=== PATIENT | male | born 1980 | race Caucasian/White ===

== ENCOUNTER 2019-12-07 19:38 | Emergency (ER) | payer OTHER, SELFPAY ==
--- NOTE | ~2019-12-07 | XR_ITS ---
EXAMINATION: XR thoracic spine 2V, XR lumbar spine 2-3V EXAM DATE: 12/07/2019 20:13 (accession [id number]), 12/07/2019 20:12 (accession [id number]) INDICATION: Fall, medial back pain. Pain radiating down arms and legs. TECHNIQUE: Lumber spine frontal, lateral, lateral L5-S1 projections for interpretation. The thoracic spine frontal and lateral projections. There are no prior studies for comparison. FINDINGS: The interpedicular spaces are preserved. There is mild lumbar and lower thoracic disc dise ase. There are no acute fractures identified. The vertebral bodies are aligned in the AP dimension. S acrum, sacroiliac joints, sacral arcuate lines are intact. Multiple small calcified gallstones. IMPRESSION: 1. Mild spondylosis. 2. Cholelithiasis. Reviewed, dictated and finalized at location A. IMPRESSION: 1. Mild spondylosis. 2. Cholelithiasis.
[2019-12-07 19:42] VITALS: BP 190/117; PULSE 95; RESP 22; TEMP 36.6; O2SAT 97
--- NOTE | 2019-12-07 19:56 | ED.GENADULT ---
HPI - General Adult General Chief complaint: Back Pain/Injury Stated complaint: back pain Time Seen by Provider: 12/07/19 19:49 Source: patient Mode of arrival: ambulatory History of Present Illness HPI narrative: Patient is a 39 y/o male complaining left back pain radiating to left leg since yesterday. He describes his pain as tightening and rates it as 8/10. There is no alleviating or exacerbating factor. He states that he took Tylenol which did not help. He denies any difficulty with bowel or bladder function. He denies any leg weakness and he is able to ambulate without difficulty. Review of Systems Constitutional: Constitutional: Denies chills, Denies fever(s), Denies headache(s) and Denies weakness Eyes: Eyes: Denies blurry vision ENT: Denies headache(s) and Denies neck pain Cardiovascular: Cardiovascular: Denies chest pain and Denies dyspnea Respiratory: Respiratory: Denies cough and Denies dyspnea Gastrointestinal: Gastrointestinal: Denies abdominal pain, Denies diarrhea, Denies nausea and Denies vomiting Genitourinary: Genitourinary: Denies hematuria and Denies dysuria Musculoskeletal: Musculoskeletal: Reports back pain and Denies neck pain Neurologic: Denies headache(s) and Denies weakness Exam Const: General: no acute distress and well developed Orientation/consciousness: oriented to person, oriented to place, oriented to time and patient oriented x3 HENMT: Head: normocephalic Ears: external ears normal General nose exam: Normal external nose present Eyes: General: appearance normal, both eyes and all related structures Conjunctivae: conjunctivae normal Neck: Neck: normal visual inspection and full ROM Chest: Chest palpation & inspection: normal inspection of the chest and no tenderness Resp: Effort & Inspection: normal respiratory effort Auscultation: clear to auscultation bilaterally Cardio: Rate: regular rate Rhythm: regular rhythm GI: GI Palp: No abdominal tenderness and Yes Soft to palpation Skin: General skin exam: normal color and turgor normal Lesions: other (mass right temporal area, likely chronic) Neuro: General: oriented to person, oriented to place, oriented to time and patient oriented x3 Cognition (Neuro): normal cognition Gait exam (Neuro): Other gait observations present (able to walk without assistance) Motor exam (neuro): 5/5 motor strength present throughout Extrem: General: normal to inspection, full ROM and no pedal edema Psych: Appearance: grossly normal Mental Status: mental status grossly normal Affect: normal affect Course Vital Signs Vital signs: Vital Signs Temperature 36.6 C 12/07/19 19:42 Pulse Rate 95 12/07/19 19:42 Respiratory Rate 22 H 12/07/19 19:42 Blood Pressure 190/117 H 12/07/19 19:42 Pulse Oximetry 97 12/07/19 19:42 Temperature 36.6 C 12/07/19 22:25 Pulse Rate 88 12/07/19 22:25 Respiratory Rate 18 12/07/19 22:25 Blood Pressure 139/88 12/07/19 22:25 Pulse Oximetry 97 12/07/19 22:25 Medical Decision Making Vital Signs Vital Signs: Vital Signs Temperature 36.6 C 12/07/19 19:42 Pulse Rate 95 12/07/19 19:42 Respiratory Rate 22 H 12/07/19 19:42 Blood Pressure 190/117 H 12/07/19 19:42 Pulse Oximetry 97 12/07/19 19:42 Temperature 36.6 C 12/07/19 22:25 Pulse Rate 88 12/07/19 22:25 Respiratory Rate 18 12/07/19 22:25 Blood Pressure 139/88 12/07/19 22:25 Pulse Oximetry 97 12/07/19 22:25 Discharge Plan Discharge Clinical Impression: Low back pain Qualifiers: Chronicity: unspecified Back pain laterality: left Sciatica presence: with sciatica Sciatica laterality: sciatica of left side Qualified Code(s): M54.42 - Lumbago with sciatica, left side Hypertension Qualifiers: Hypertension type: unspecified Qualified Code(s): I10 - Essential (primary) hypertension Patient Disposition: Home, Self-Care Condition: Stable Instructions: Back Pain (ED) Prescriptions: New
[2019-12-07 22:25] VITALS: BP 139/88; PULSE 88; RESP 18; TEMP 36.6; O2SAT 97
== END 2019-12-07 22:26 | disposition home or self-care (01) ==
PROVIDERS: Emergency Provider Emergency Medicine
DX: M54.42 Lumbago with sciatica, left side (principal); I10 Essential (primary) hypertension
CPT/HCPCS: 72070; 72100; 99283

== ENCOUNTER 2022-01-14 22:51 | Inpatient (IN) | payer OTHER, SELFPAY ==
[2022-01-14] VITALS (7 sets, daily range): BP systolic 175–200; BP diastolic 76–101; PULSE 66–73; RESP 18–20; TEMP 36.3; O2SAT 96–100
--- NOTE | ~2022-01-14 | XR_ITS ---
EXAMINATION: XR chest 2V DATE: 01/14/2022 23:42 INDICATION: Chest pain. TECHNIQUE: Frontal and lateral views of the chest were obtained. COMPARISON: None. FINDINGS: There is mild atelectasis in right lower lung zone. There is mild elevation of right hemidi aphragm. No pleural effusion or pneumothorax. The heart size is normal. There is mild chronic anterio r wedging of a midthoracic vertebral body. IMPRESSION: 1. Mild atelectasis in right lower lung zone with mild elevation of right hemidiaphragm. Reviewed, dictated and finalized at location A. IMPRESSION: 1. Mild atelectasis in right lower lung zone with mild elevation of right hemid iaphragm.
--- NOTE | ~2022-01-14 | NM_ITS ---
EXAMINATION: NM hal stress w perfusion DATE: 01/15/2022 13:46 INDICATION: Chest pain. TECHNIQUE: Rest images were obtained following intravenous administration of 14.8 mCi Tc99m tetrofosm in (Myoview). The patient was infused intravenously with Lexiscan (regadenoson). Then, 42.6 mCi Tc99m tetrofosmin (Myoview) was administered intravenously, and supine and prone stress images were obtain ed. Data was reconstructed into short axis and horizontal and vertical long axis SPECT images. Gated SPECT images were also obtained. COMPARISON: None. FINDINGS: There is no definite reversible or fixed perfusion abnormality to suggest ischemia or infar ction. There is no segmental wall motion abnormality. Left ventricular ejection fraction measures 5 7%. IMPRESSION: 1. No definite ischemia or infarct. 2. Normal left ventricular ejection fraction measuring 57%. Reviewed, dictated and finalized at location A.
--- NOTE | 2022-01-14 22:56 | ECG_ITS ---
Measurements Intervals [place] Rate: 69 P: 50 WA: 198 QRS: -28 QRSD: 100 T: 17 QT: 382 QTc: 410 Interpretive Statements SINUS RHYTHM BORDERLINE AV CONDUCTION DELAY POOR R WAVE PROGRESSION, CONSIDER ANTERIOR INFARCT BASELINE ARTIFACT- I, II, III, AVF ABNORMAL ECG NO PREVIOUS ECG AVAILABLE FOR COMPARISON Electronically Signed On 01-15-2022 6:52:19 CDT by Tho Kuo D.O.
[2022-01-14 23:20] LABS: Basophils Percent Auto 0.5 % (0.2-1.2); Eosinophils Absolute Auto 0.1 K/mm3 (0-0.3); Eosinophils Percent Auto 1.8 % (0-4.4); Hematocrit 42.5 % (42.0-52.0); Hemoglobin 14.9 g/dL (14.0-18.0); Immature Granulocyte Absolute 0.01 K/mm3 (0.00-0.031); Immature Granulocyte Percent A 0.2 % (0-0.5); Lymphocytes Absolute Auto 2.21 K/mm3 (0.9-3.2); Lymphocytes Percent Auto 39.9 % (18.3-44.2); Mean Corpuscular HGB Conc 35.1 g/dl (32-36); Mean Corpuscular Hemoglobin 30.8 pg (26-34); Mean Platelet Volume 9.5 fl (7.4-10.4); Monocytes Absolute Auto 0.6 K/mm3 (0.1-0.6); Monocytes Percent Auto 10.3 % (2.6-8.5); Neutrophils Absolute Auto 2.6 K/mm3 (1.3-6.7); Neutrophils Percent Auto 47.3 % (45.5-73.1); Platelet Count Result 175 k/mm3 (150-375); Red Blood Count 4.83 M/mm3 (4.6-6.20); Red Cell Distribution Width 12.7 % (11.5-14.5); White Blood Count 5.5 K/mm3 (4.5-10.0)
[2022-01-14 23:31] LABS: Alanine Aminotransferase 41 U/L (6-50); Alkaline Phosphatase 49 U/L (38-126); Anion Gap 12 mmol/L (8-16); Aspartate Amino Transferase 33 U/L (17-59); Bilirubin,Total 0.6 mg/dL (0.2-1.3); Blood Urea Nitrogen 14 mg/dL (9-20); Calcium 8.7 mg/dL (8.4-10.2); Carbon Dioxide 27 mmol/L (22-30); Chloride 100 mmol/L (98-107); Estimated CRCL calculation 199 ml/min; Estimated Glomerular Filt Rate > 60; Glucose 213 mg/dL (65-110); Lipase 48 U/L (23-300); Potassium 3.4 mmol/L (3.4-5.0); Prothrombin Time 12.3 Seconds (11.1-14.7); Sodium 139 mmol/L (137-145)
[2022-01-14 23:32] LABS: Partial Thromboplastin Time 24.6 SECONDS (22.3-36.8)
[2022-01-14] MEDS: ASPIRIN 81 MG CHEWABLE TABLET 324 MG PO (23:55)
[2022-01-14] MEDS: IBUPROFEN 400 MG TABLET 800 MG PO (23:55)
[2022-01-14] MEDS: ACETAMINOPHEN 500 MG TABLET 1000 MG PO (23:56)
[2022-01-15] VITALS (45 sets, daily range): BP systolic 134–186; BP diastolic 68–116; PULSE 58–90; RESP 14–23; TEMP 36.1–36.3; O2SAT 93–100; BMI 54.9
--- NOTE | 2022-01-15 | ECHO_ITS ---
Patient Info Name: Hamlet Owens Age: 41 years : 1980 Gender: Male Ht: 75 in Wt: 439 lbs BSA: 3.35 m2 HR: 80 bpm BP: 186 / 116 mmHg Heart Rhythm: Sinus Rhythm Technical Quality: Fair Exam Date: 01/15/2022 10:34 AM Exam Location: [facility] Patient Status: Inpatient Admit Date: 01/15/2022 Staff Ordering Physician: Shane Molina Home Stager: Deya Camacho RDCS Attending Provider: Hilario Garcia MD Referring Physician: Jesse MEJIA; Exam Type: CA echo dop color flow w con Study Info Indications R07.9 - Chest pain, unspecified Complete two-dimensional, color flow and Doppler transthoracic echocardiogram is performed with contrast to opacify the left ventricle and to improve the deliniation of the left ventricle endocardial borders. Contrast/Agitated Saline Contrast/Ag. Saline: Definity Amount: 3.00 ml Administered By: Deya Camacho RDCS Existing IV Access: Yes IV Access Condition: patent with no signs of infiltration Summary 1. Definity contrast injected to enhance visualization. 2. Left ventricular systolic function is normal, estimated at 55-60%. 3. Left ventricular chamber dimension is normal. 4. Reduced image quality because of obesity. 5. No significant valvular dysfunction. 6. No apparent regional wall motion abnormalities. Left Ventricle Left ventricular chamber dimension is normal. Left ventricular systolic function is normal, estimated at 55-60%. The left ventricular diastolic function is normal. Definity contrast injected to enhance visualization. Right Ventricle Right ventricular chamber dimension is normal. Left Atria Left atrial chamber dimension is mildly enlarged. Right Atria Right atrial chamber dimension is normal. Aortic Valve The aortic valve is normal. Pulmonic Valve The pulmonic valve is not well visualized. Mitral Valve The mitral valve has normal leaflets. Tricuspid Valve The tricuspid valve leaflets are not well visualized. Pericardium/Pleural The pericardium appears normal. Aorta The aortic root size at the sinus of Valsalva is normal. Left Ventricular Outflow Tract Name Value Normal LVOT 2D LVOT Diameter 2.19 cm LVOT Doppler LVOT Peak Gradient 3 mmHg LVOT Mean Gradient 2 mmHg LVOT VTI 17.54 cm LVOT VTI/AV VTI Ratio 0.68 LVOT Stroke Volume 65.95 ml LVOT CO 4.67 l/min LVOT CI 1.39 L/min/m2 Pulmonic Valve Name Value Normal RVOT Doppler RVOT Peak Gradient 3 mmHg PV Doppler PV Peak Gradient
--- NOTE | 2022-01-15 | EST_ITS ---
Patient Info Name: Hamlet Owens Age: 41 years : 1980 Gender: Male Ht: 75 in Wt: 439 lbs BSA: 3.35 m2 Exam Date: 01/15/2022 12:21 PM Exam Location: [facility] Stress Patient Status: Inpatient Admit Date: 01/15/2022 Staff Ordering Physician: Janeth Haro MD Attending Provider: Hilario Garcia MD Exercise Technologist: Karly Wright RDCS Nurse: AISHA NGUYEN NP Exam Type: CA stress hal w NM Study Info Indications R07.9 - Chest pain, unspecified A regadenoson stress test was performed. Summary 1. Normal sinus rhythm. 2. Poor R-wave progression, left anterior superior hemiblock. 3. Clinically and electrocardiographically unremarkable Lexiscan stress test. 4. Myocardial perfusion imaging study to be reported by Radiology. Protocol: Lexiscan Stress ECG Details Stage: REST Duration (min): 0 min : 46 sec HR (bpm): 80 SBP (mmHg): 143 DBP (mmHg): 71 Stage: REST Duration (min): 11 min : 51 sec HR (bpm): 85 SBP (mmHg): 143 DBP (mmHg): 71 Stage: STAGE 1 Duration (min): 1 min : 0 sec HR (bpm): 90 SBP (mmHg): 148 DBP (mmHg): 49 Stage: RECOVERY Duration (min): 1 min : 0 sec HR (bpm): 85 SBP (mmHg): 166 DBP (mmHg): 40 Stage: RECOVERY Duration (min): 2 min : 0 sec HR (bpm): 81 SBP (mmHg): 166 DBP (mmHg): 40 Stage: RECOVERY Duration (min): 3 min : 0 sec HR (bpm): 77 SBP (mmHg): 166 DBP (mmHg): 40 Stage: RECOVERY Duration (min): 3 min : 29 sec HR (bpm): 78 SBP (mmHg): 125 DBP (mmHg): 75 Rest HR: 85 bpm Peak HR: 90 bpm Rest Sys BP: 143 mmHg Peak Sys BP: 166 mmHg Max Pred HR: 181 bpm % Max Pred HR: 50 % Target HR: 154 bpm Max RPP: 14,940 bpm*mmHg Termination Reason: Completed protocol Cardiac Symptoms: None Total Time: 1 min : 0 sec Rest Cheung BP: 71 mmHg Peak Cheung BP: 40 mmHg Total Dose: 0.4 mg Resting ECG Normal sinus rhythm. Poor R-wave progression, left anterior superior hemiblock. Stress ECG No ST or T-wave abnormalities following Lexiscan injection. Arrhythmias None. Report Signatures
--- NOTE | 2022-01-15 00:35 | ED.GENADULT ---
HPI - General Adult General Chief complaint: Chest Pain Stated complaint: HTN, chest pressure Time Seen by Provider: 01/14/22 23:05 History of Present Illness HPI narrative: This is a 41-year-old morbidly obese Male presenting to ED with right arm discomfort. Patient says that he was laying in bed watching TV when he started to experience pain in his right arm below the shoulder. It is now radiating down his arm and across his chest. This started at approximately 9:30 p.m. last night. It is it is 8/10 in intensity. He says is currently intermittent. He has never experienced pain like this before. There were no exacerbating or alleviating factors. It is not associated with vomiting diaphoresis or exertion. The patient notes that he has significant anxiety associated w/ his arm discomfort. Related Data Allergies Allergy/AdvReac Type Severity Reaction Status Date / Time morphine AdvReac Nausea and Verified 01/14/22 22:55 Vomiting Review of Systems Review of Systems: CONSTITUTIONAL: Denies night sweats. EYES: No eye pain ENT: Denies rhinorrhea CARDIOVASCULAR: Denies palpitations RESPIRATORY: Denies hemoptysis GASTROINTESTINAL: Denies hematemesis GENITOURINARY: Denies hematuria. SKIN: Denies rash MUSCULOSKELETAL: Denies myalgia. NEUROLOGIC: Denies weakness. PSYCHIATRIC: Denies delusions PMF Past Medical History Medical History (Updated 01/15/22 @ 02:59 by Manjeet Galarza MD) Diabetes Hypertension Social History Social History (Updated 01/15/22 @ 00:42 by Manjeet Galarza MD) Social History: patient drinks alcohol occasionally, smoked quit smoking 10 years ago, denies illicit dr Exam Narrative: APPEARANCE: Patient appears anxious, obese Head atraumatic. EYES: PERRLA/EOMI, NOSE: Normal no drainage NECK: Supple, Trachea midline RESPIRATORY: CTAB, No increased work of breathing. CARDIOVASCULAR: S1S2 appreciated, ABDOMINAL: soft nontender obese MUSCULOSKELETAl: No obvious deformities. focal exam of the right upper extremity revealed tenderness to palpation over the lateral humerus. There are no overlying skin changes. The compartments are soft. There is no evidence of erythema fluctuance or infection. Pulses are +2 in the radial ulnar distribution. Tank Operator strength is intact and motor function of the radial ulnar and median nerves intact. NEURO: Alert. Moving 4/4 extremities SKIN:: Warm, dry. Normal color PSYCHIATRIC: Normal affect Course Vital Signs Vital signs: Vital Signs Temperature 97.4 F L 01/14/22 22:57 Pulse Rate 73 01/14/22 22:57 Respiratory Rate 20 01/14/22 22:57 Blood Pressure 200/101 H 01/14/22 22:57 Pulse Oximetry 99 01/14/22 22:57 Oxygen Delivery Room Air 01/14/22 22:57 Temperature 97.4 F L 01/14/22 22:57 Pulse Rate 58 L 01/15/22 02:31 Respiratory Rate 15 01/15/22 02:31 Blood Pressure 140/74 01/15/22 02:31 Pulse Oximetry 95 01/15/22 02:31 Oxygen Delivery Room Air 01/14/22 22:57 Medical Decision Making MDM Narrative Medical decision making narrative: This is a 41-year-old male presenting to ED with what initially started out as right arm discomfort is now spread to his hand into his chest. Patient is concerned that he is having a heart attack. Basic lab work including 2 troponins, EKG and chest x-ray have been ordered. Patient has tenderness to palpation of his right bicep/tricep. He will be given Motrin and Tylenol. Chest x-rays interpreted by myself reveal an elevated right hemidiaphragm but no other acute findings. EKG interpretation: Rhythm [sinus], Rate 69, [place] - leftward, RI -[normal], QRS [narrow], QTC [normal], T waves -[negative for concerning inversions], ST Segments - [Negative for concerning elevations] Final interpretations: [Normal Sinus Rhythm Without STEMI] Patient's initial troponin was negative. His repeat troponin was 0.048. The patient has been sleeping throughout his entire stay in the
[2022-01-15 02:44] LABS: Troponin I 0.048 ng/mL (0.000-0.034)
--- NOTE | 2022-01-15 02:44 | ECG_ITS ---
Measurements Intervals [place] Rate: 62 P: 39 SD: 222 QRS: -20 QRSD: 88 T: 7 QT: 412 QTc: 421 Interpretive Statements SINUS RHYTHM WITH FIRST DEGREE AV BLOCK LOW QRS VOLTAGE IN PRECORDIAL LEADS ANTEROSEPTAL INFARCT, AGE INDETERMINATE CONSIDER INFERIOR INFARCT, AGE INDETERMINATE BASELINE ARTIFACT- V3 COMPARED TO ECG 01/14/2022 23:08:10 FIRST DEGREE AV BLOCK NOW PRESENT Electronically Signed On 01-15-2022 6:56:50 CDT by Tho Kuo D.O.
--- NOTE | 2022-01-15 04:00 | PM.IMHP ---
H&P: HPI History of Present Illness Date/Time: 01/15/22 0400 Chief Complaint: Right arm pain Narrative: Patient is a 41-year-old male with past medical history of diabetes, hypertension, hyperlipidemia who presented to the ED with complaints of right arm pain. Patient stated he was lying in bed and his right arm started to hurt and thought he was laying on it wrong. However when he moved it just got worse. Shortly thereafter went to his chest and stopped at the right sternal border. He stated he was little short of breath with chest pain however that resolved quickly. He stated that the chest pain is more like a pressure which she stated was a 10/10 pain. He also stated that he currently has no pain however he does still have the pressure in his right arm. He denied any nausea, vomiting, diarrhea, constipation, sweats, fevers, chills, lightheadedness, dizziness, weakness or fatigue. He did state that at 1 time he was without a job and was unable to get his medications. He stated that his blood pressure without the medications were 150-160/90-95 however when he took his medications were 130-140/80-90. He denies any palpitations. He did state that he does have some chronic swelling that normally stops in the calf area. He also stated that he does urinate a lot, however, he is on furosemide. Troponin are notably going up 0.048/0.092. Blood pressure is also noted to be a little elevated. Cardiology has been consulted. Patient is being admitted to the hospitalist as inpatient Review of Systems Review of Systems: All systems reviewed & are unremarkable except as noted in HPI and below [facility] Past Medical History Medical History (Updated 01/15/22 @ 06:33 by SYL Wilde) Diabetes Hypertension Social History Social History (Updated 01/15/22 @ 00:42 by Manjeet Galarza MD) Social History: patient drinks alcohol occasionally, smoked quit smoking 10 years ago, denies illicit dr Meds Home Medications and Allergies Home Medications Medication Instructions Recorded Confirmed Type atorvastatin 20 mg tablet 20 mg PO HS 01/15/22 01/15/22 History furosemide 40 mg tablet 40 mg PO DAILY PRN Edema 01/15/22 01/15/22 History losartan 100 mg tablet 100 mg PO DAILY 01/15/22 01/15/22 History metformin 1,000 mg tablet 1,000 mg PO BIDWM 01/15/22 01/15/22 History Allergies Allergy/AdvReac Type Severity Reaction Status Date / Time morphine AdvReac Nausea and Verified 01/14/22 22:55 Vomiting antipersperent deodorant AdvReac Blister Uncoded 01/15/22 05:59 Vital Signs Vital Signs - 24 hr 01/14/22 22:57 01/14/22 23:07 01/14/22 23:08 Temperature 97.4 F L Pulse Rate 73 69 69 Respiratory Rate 20 20 18 Blood Pressure 200/101 H 175/76 H Pulse Oximetry 99 98 97 Oxygen Delivery Room Air 01/14/22 23:15 01/14/22 23:30 01/14/22 23:31 Temperature Pulse Rate 67 67 71 Respiratory Rate 20 19 20 Blood Pressure 184/91 H Pulse Oximetry 99 100 100 Oxygen Delivery 01/14/22 23:45 01/15/22 00:00 01/15/22 00:01 Temperature Pulse Rate 66 67 65 Respiratory Rate 19 20 22 H Blood Pressure 160/82 H Pulse Oximetry 96 96 96 Oxygen Delivery 01/15/22 00:15 01/15/22 00:30 01/15/22 00:31 Temperature Pulse Rate 63 61 62 Respiratory Rate 19 18 18 Blood Pressure 147/75 H Pulse Oximetry 95 94 94 Oxygen Delivery 01/15/22 00:45 01/15/22 01:00 01/15/22 01:01 Temperature Pulse Rate 67 65 64 Respiratory Rate 18 18 17 Blood Pressure 145/68 H Pulse Oximetry 93 95 94 Oxygen Delivery 01/15/22 01:15 01/15/22 01:30 01/15/22 01:31 Temperature Pulse Rate 59 L 61 62 Respiratory Rate 16 19 17 Blood Pressure 138/84 Pulse Oximetry 95 97 97 Oxygen Delivery 01/15/22 01:32 01/15/22 01:45 01/15/22 02:00 Temperature Pulse Rate 64 63 71 Respiratory Rate 17 15 15 Blood Pressure Pulse Oximetry 95 97 96 Oxygen Delivery 01/15/22 02:01 01/15/22 02:15 12/28
[2022-01-15 04:22] LABS: SARS-CoV-2 RNA PCR Negative
[2022-01-15 05:27] LABS: Troponin I 0.092 ng/mL (0.000-0.034)
--- NOTE | 2022-01-15 05:48 | ADMGEN ---
This patient, Hamlet Owens, was admitted to IMU Room 205-01. Patient/family oriented to hospital policies and general routines including ID bracelet, bed and alarms, visiting hours, pain management, procedures, bathroom and other care routines, personal items, smoking policy, room service/diet, and visiting hours. Information on how to activate the Rapid Response Team has been discussed. Patient/Family are encouraged to report perceived risks to care and to ask questions if they do not understand what they are told or what they should do.
[2022-01-15] MEDS: hydrALAZINE HCL 20 MG/ML VIAL 10 MG IV PUSH (06:30)
[2022-01-15 07:47] LABS: Basophils Percent Auto 0.4 % (0.2-1.2); Eosinophils Absolute Auto 0.1 K/mm3 (0-0.3); Eosinophils Percent Auto 2.2 % (0-4.4); Hematocrit 44.5 % (42.0-52.0); Hemoglobin 15.5 g/dL (14.0-18.0); Immature Granulocyte Absolute 0.03 K/mm3 (0.00-0.031); Immature Granulocyte Percent A 0.7 % (0-0.5); Lymphocytes Absolute Auto 1.74 K/mm3 (0.9-3.2); Lymphocytes Percent Auto 38.2 % (18.3-44.2); Mean Corpuscular HGB Conc 34.8 g/dl (32-36); Mean Corpuscular Hemoglobin 30.8 pg (26-34); Mean Corpuscular Volume 88.5 fl (80-100); Mean Platelet Volume 9.3 fl (7.4-10.4); Monocytes Absolute Auto 0.4 K/mm3 (0.1-0.6); Monocytes Percent Auto 8.1 % (2.6-8.5); Neutrophils Absolute Auto 2.3 K/mm3 (1.3-6.7); Neutrophils Percent Auto 50.4 % (45.5-73.1); Platelet Count Result 171 k/mm3 (150-375); Red Blood Count 5.03 M/mm3 (4.6-6.20); Red Cell Distribution Width 12.7 % (11.5-14.5); White Blood Count 4.6 K/mm3 (4.5-10.0)
[2022-01-15 07:56] LABS: Magnesium 1.6 mg/dL (1.6-2.3)
[2022-01-15 08:16] LABS: Partial Thromboplastin Time 25.2 SECONDS (22.3-36.8); Prothrombin Time 12.7 Seconds (11.1-14.7)
[2022-01-15 08:17] LABS: Troponin I 0.152 ng/mL (0.000-0.034)
[2022-01-15 08:21] LABS: Hemoglobin A1C 9.6 % (<5.7)
[2022-01-15] MEDS: HEPARIN SOD/D5W 100 UNITS/ML 25,000 UNITS/250 ML BAG 10 UNITS IV CONT (08:26)
[2022-01-15 08:30] LABS: Glucose Point of Care 242 mg/dl (65-105)
[2022-01-15] MEDS: FUROSEMIDE 40 MG TABLET PO (08:30)
[2022-01-15] MEDS: HEPARIN SODIUM 5,000 UNITS/ML VIAL 4000 UNITS IV PUSH (08:30)
[2022-01-15] MEDS: LOSARTAN POTASSIUM 100 MG TABLET PO (08:31)
[2022-01-15] MEDS: PERFLUTREN LIPID MICROSPHERES 1.5 ML VIAL DILUTED TO 10 ML TOTAL VOLUME IV PUSH (10:04)
--- NOTE | 2022-01-15 10:04 | IVDEFINITY ---
Prior to administration of IV Definity the patient was educated on the risks and benefits of the imaging enhancing agent including potential adverse side effects. The patient verbalized understanding. Allergies were verified. No exclusion criteria were identified and at least one of the following inclusion criteria were met: 1) physician request, 2) patient technically difficult to image (per the [place] [employer] guidelines of two or more segments not discernable within the apical view), or 3) questionable left ventricular function. ?
--- NOTE | 2022-01-15 11:36 | PM.CNCAR ---
Assessment and Plan Assessment and plan (1) Chest pain: Code(s): R07.9 - Chest pain, unspecified Status: Acute (2) Elevated troponin: Code(s): R77.8 - Other specified abnormalities of plasma proteins Status: Acute (3) Hypertension: Code(s): I10 - Essential (primary) hypertension Status: Acute (4) Diabetes: Code(s): E11.9 - Type 2 diabetes mellitus without complications Status: Acute (5) Obesity: Code(s): E66.9 - Obesity, unspecified Status: Acute Plan Echocardiogram ordered and pending, will follow-up on results Start aspirin 81 mg once daily, continue statin. Continue with blood pressure control. Obtain pharmacologic MPI. History of Present Illness History of Present Illness Consult date/time: 01/15/22 11:36 Requesting physician: Shane Molina APN-C Consult reason: chest pain Reason For Visit: chest pain Narrative: Patient is a 41-year-old male with a history of morbid obesity, hypertension, hyperlipidemia, diabetes presents for evaluation of chest pain. Patient reports yesterday evening he developed right arm pressure that radiated to his chest. Symptoms lasted until 3:00 a.m.. Patient reports that his pain was off and on until then. Patient states that he has had right arm pain in the past that felt more like cramping, and yesterday's episode felt different. Patient is currently chest pain free. No prior cardiac history. Family history is negative for premature heart disease. Patient is a former smoker, quit in 2010. Patient has a history of high blood pressure, and reports he takes his medications 4-5 times a week. On arrival here blood pressure noted to be as high as 200 systolic, and patient found with mildly elevated troponins. ECG without ischemic changes. Review of Systems Review of Systems: All systems reviewed & are unremarkable except as noted in HPI and below [facility] Past Medical History Medical History Diabetes Hypertension Social History Social History Social History: patient drinks alcohol occasionally, smoked quit smoking 10 years ago, denies illicit dr Smoking packs per day: 2 Smoking cigarettes per day: 40.0 Years smoked: 10 Smoking pack-years: 20.00 Smoking status: Former smoker Tobacco type: cigarettes Alcohol intake: current Substance use: never Spiritual care concerns: No Meds Home Medications and Allergies Home Medications Medication Instructions Recorded Confirmed Type atorvastatin 20 mg tablet 20 mg PO HS 01/15/22 01/15/22 History furosemide 40 mg tablet 40 mg PO DAILY PRN Edema 01/15/22 01/15/22 History losartan 100 mg tablet 100 mg PO DAILY 01/15/22 01/15/22 History metformin 1,000 mg tablet 1,000 mg PO BIDWM 01/15/22 01/15/22 History Allergies Allergy/AdvReac Type Severity Reaction Status Date / Time morphine AdvReac Nausea and Verified 01/14/22 22:55 Vomiting antipersperent deodorant AdvReac Blister Uncoded 01/15/22 05:59 Vital Signs Vital Signs - 24 hr 01/14/22 22:57 01/14/22 23:07 01/14/22 23:08 Temperature 36.3 C L Pulse Rate 73 69 69 Respiratory Rate 20 20 18 Blood Pressure 200/101 H 175/76 H Pulse Oximetry 99 98 97 Oxygen Delivery Room Air 01/14/22 23:15 01/14/22 23:30 01/14/22 23:31 Temperature Pulse Rate 67 67 71 Respiratory Rate 20 19 20 Blood Pressure 184/91 H Pulse Oximetry 99 100 100 Oxygen Delivery 01/14/22 23:45 01/15/22 00:00 01/15/22 00:01 Temperature Pulse Rate 66 67 65 Respiratory Rate 19 20 22 H Blood Pressure 160/82 H Pulse Oximetry 96 96 96 Oxygen Delivery 01/15/22 00:15 01/15/22 00:30 01/15/22 00:31 Temperature Pulse Rate 63 61 62 Respiratory Rate 19 18 18 Blood Pressure 147/75 H Pulse Oximetry 95 94 94 Oxygen Delivery 01/15/22 00:45 01/15/22 01:00 01/15/22 01:01 [facility]
[2022-01-15 14:49] LABS: Partial Thromboplastin Time 25.1 SECONDS (22.3-36.8)
[2022-01-15] MEDS: ACETAMINOPHEN 325 MG TABLET 650 MG PO (16:24)
--- NOTE | 2022-01-15 16:24 | P.DS_ITS ---
DS: Admitting Diagnosis Discharge Date January 15, 2022 Admitting Diagnosis Arm and chest pain DS: Discharge Diagnosis Discharge Diagnosis (1) Chest pain: Code(s): R07.9 - Chest pain, unspecified Status: Acute Assessment and Plan: * EKG does not indicate any ST changes * Trops 0.048-0.092 * Aspirin * Cardiology consult * Echo ordered * Consider heparin (2) Elevated troponin: Code(s): R77.8 - Other specified abnormalities of plasma proteins Status: Acute Assessment and Plan: * Trops 0.048/0.092 * Continue to trend * Seems to be acs * No ekg changes * Chest xray pending read * Cardiology consult (3) CHF (congestive heart failure): Code(s): I50.9 - Heart failure, unspecified Status: Acute Assessment and Plan: * It seems there is a component of heart failure, more than likily a diastolic heart failure probably chronic * Echo is ordered * 3+ pitting edema to the bilateral lower extremities * Take furosemide PRN * Start furosemide 40mg PO daily for now * Aj hose ordered * daily weights (4) Diabetes: Code(s): E11.9 - Type 2 diabetes mellitus without complications Status: Acute Assessment and Plan: * Glucose is 213 * A1c ordered * Hold metformin for now * Trend glucose * Accu cheks * adjust therapy as indicated (5) Obesity: Code(s): E66.9 - Obesity, unspecified Status: Acute Assessment and Plan: * Lifestyle changes * [employer] Salesperson consult (6) Hypertension: Code(s): I10 - Essential (primary) hypertension Status: Acute Assessment and Plan: * BP is elevated at 186/116 * Continue home losartan * Trend BP * Adjust therapy as indicated DS: Summary Hospital Course Hospital Course: 41-year-old male with past medical history of diabetes, hypertension, hyperlipidemia who presented to the ED with complaints of right arm pain.? Patient stated he was lying in bed and his right arm started to hurt and thought he was laying on it wrong.? However when he moved it just got worse.? Shortly thereafter went to his chest and stopped at the right sternal border.? He stated he was little short of breath with chest pain however that resolved quickly.? He stated that the chest pain is more like a pressure which she stated was a 10/10 pain.? He also stated that he currently has no pain however he does still have the pressure in his right arm.? He denied any nausea, vomiting, diarrhea, constipation, sweats, fevers, chills, lightheadedness, dizziness, weakness or fatigue.? He did state that at 1 time he was without a job and was unable to get his medications.? He stated that his blood pressure without the medications were 150-160/90-95 however when he took his medications were 130-140/80-90.? He denies any palpitations.? He did state that he does have some chronic swelling that normally stops in the calf area.? He also stated that he does urinate a lot, however, he is on furosemide.? Troponin are notably going up 0.048/0.092.? Blood pressure is also noted to be a little elevated.? Cardiology has been consulted. Stress test and echo were ordered and within normal limits, patient was discharged in good condition with close outpatient follow-up on aspirin and statin. Time Spent with Patient Time attestation: Total time spent providing and/or coordinating discharge services: Exam
--- NOTE | 2022-01-15 16:24 | PM.DS ---
DS: Admitting Diagnosis Discharge Date January 15, 2022 Admitting Diagnosis Arm and chest pain DS: Discharge Diagnosis Discharge Diagnosis (1) Chest pain: Code(s): R07.9 - Chest pain, unspecified Status: Acute Assessment and Plan: EKG does not indicate any ST changes Trops 0.048-0.092 Aspirin Cardiology consult Echo ordered Consider heparin (2) Elevated troponin: Code(s): R77.8 - Other specified abnormalities of plasma proteins Status: Acute Assessment and Plan: Trops 0.048/0.092 Continue to trend Seems to be acs No ekg changes Chest xray pending read Cardiology consult (3) CHF (congestive heart failure): Code(s): I50.9 - Heart failure, unspecified Status: Acute Assessment and Plan: It seems there is a component of heart failure, more than likily a diastolic heart failure probably chronic Echo is ordered 3+ pitting edema to the bilateral lower extremities Take furosemide PRN Start furosemide 40mg PO daily for now Aj mckeon ordered daily weights (4) Diabetes: Code(s): E11.9 - Type 2 diabetes mellitus without complications Status: Acute Assessment and Plan: Glucose is 213 A1c ordered Hold metformin for now Trend glucose Accu cheks adjust therapy as indicated (5) Obesity: Code(s): E66.9 - Obesity, unspecified Status: Acute Assessment and Plan: Lifestyle changes Medical Charge Entry Specialist consult (6) Hypertension: Code(s): I10 - Essential (primary) hypertension Status: Acute Assessment and Plan: BP is elevated at 186/116 Continue home losartan Trend BP Adjust therapy as indicated DS: Summary Hospital Course Hospital Course: 41-year-old male with past medical history of diabetes, hypertension, hyperlipidemia who presented to the ED with complaints of right arm pain.? Patient stated he was lying in bed and his right arm started to hurt and thought he was laying on it wrong.? However when he moved it just got worse.? Shortly thereafter went to his chest and stopped at the right sternal border.? He stated he was little short of breath with chest pain however that resolved quickly.? He stated that the chest pain is more like a pressure which she stated was a 10/10 pain.? He also stated that he currently has no pain however he does still have the pressure in his right arm.? He denied any nausea, vomiting, diarrhea, constipation, sweats, fevers, chills, lightheadedness, dizziness, weakness or fatigue.? He did state that at 1 time he was without a job and was unable to get his medications.? He stated that his blood pressure without the medications were 150-160/90-95 however when he took his medications were 130-140/80-90.? He denies any palpitations.? He did state that he does have some chronic swelling that normally stops in the calf area.? He also stated that he does urinate a lot, however, he is on furosemide.? Troponin are notably going up 0.048/0.092.? Blood pressure is also noted to be a little elevated.? Cardiology has been consulted. Stress test and echo were ordered and within normal limits, patient was discharged in good condition with close outpatient follow-up on aspirin and statin. Time Spent with Patient Time attestation: Total time spent providing and/or coordinating discharge services: Exam Narrative: General: No acute distress, alert and oriented per baseline HEENT: Atraumatic, normocephalic, mucous membranes moist CV: Regular rate and rhythm, S1, S2 Lungs: Clear to auscultation bilaterally, no rales or crackles noted, no wheezes, good air entry Abdomen: Soft, nontender, nondistended Extremities: Normal to inspection Skin: No rashes noted, no lesions or wounds seen Psych: Euthymic, normal affect DS: Data Data Completed and Pending Labs on day of discharge: Labs from last 24 hours 01/15/22
[2022-01-15 16:47] LABS: Glucose Point of Care 201 mg/dl (65-105)
== END 2022-01-15 16:47 | disposition home or self-care (01) | DRG 313 ==
LOC: ANHED 01-15 02:59 → ANHIMU 01-15 06:19
PROVIDERS: Nurse Practitioner; Admitting Provider Internal Medicine; Emergency Provider Emergency Medicine; PCP Nurse Practitioner Family; Visit Provider Student in an Organized Health Care Education/Training Program
DX: R07.9 Chest pain, unspecified (principal); Z68.43 Body mass index [BMI] 50.0-59.9, adult; I50.32 Chronic diastolic (congestive) heart failure; I11.0 Hypertensive heart disease with heart failure; E66.01 Morbid (severe) obesity due to excess calories; R77.8 Other specified abnormalities of plasma proteins; M79.601 Pain in right arm; E11.9 Type 2 diabetes mellitus without complications; E78.5 Hyperlipidemia, unspecified; Z20.822 Contact with and (suspected) exposure to COVID-19; Z79.84 Long term (current) use of oral hypoglycemic drugs; Z79.899 Other long term (current) drug therapy; Z87.891 Personal history of nicotine dependence
CPT/HCPCS: 36415; 71046; 78452; 80053; 82948; 83036; 83690; 83735; 84484; 85025; 85610; 85730; 93005; 93017; 99285; A9270; A9502; C8929; C9803; J0360; J1644; J2785; Q9957; U0003; U0005

== ENCOUNTER 2022-04-02 22:36 | Emergency (ER) | payer OTHER, SELFPAY ==
--- NOTE | ~2022-04-02 | CT_ITS ---
EXAMINATION: CT abdomen pelvis w con DATE: 04/03/2022 03:21 INDICATION: Epigastric abdominal pain radiating down the abdomen. Past history of diverticulitis TECHNIQUE: Computed tomography (CT) of the abdomen and pelvis was performed with 150 CC Omnipaque 350 intravenous contrast. Automated exposure control and iterative reconstruction technique were employe d. Exam dose: 1889.73 mGy-cm total exam DLP. COMPARISON: None. FINDINGS: Minimal middle and right lower lobe atelectasis. Normal heart size. Trace pericardial fluid. No pleural effusion. There are multiple stones within a contracted gallbladder.. There is hepatic steatosis. Splenic size is within normal range. No hepatic, splenic, pancreatic, adrenal or renal space-occupying mass lesion is detected. No urinary tract calculus or hydroureteronephrosis. The urinary bladder and prostate gl and are unremarkable. Small bilateral fat-containing inguinal hernias and small fat-containing umbilical hernia. Normal caliber of the abdominal aorta. No intraperitoneal or retroperitoneal or pelvic mass lesion or adenopathy or ascites. There is diverticulosis of left and right colon; no CT evidence of diverticulitis. Normal appendix. N o bowel obstruction, bowel wall thickening, pneumatosis or intraperitoneal free air. Old healed lower left rib fractures. No suspicious osteolytic or osteoblastic lesions. IMPRESSION: Hepatic steatosis Cholelithiasis Diverticulosis of the colon; no CT evidence of diverticulitis Normal appendix Dr. Guzmán telephoned to emergency room physician Dr. Galarza 04/03/2022 at 0840 hours with the finding of cholelithiasis. (Initial teleradiology interpretation indicated cholecystectomy, but there is a contr acted gallbladder with multiple stones.) I recommended gallbladder ultrasound examination to Dr. Galarza . Reviewed, dictated and finalized at [facility]. Reviewed, dictated and finalized at [facility]. [facility] [employer] IMPRESSION: Hepatic steatosis Cholelithiasis Diverticulosis of the colon; no CT evidence of diverticulitis Normal appendix Dr. Guzmán telephoned to emergency room physician Dr. Galarza 04/03/2022 at 0840 hour s with the finding of cholelithiasis. (Initial teleradiology interpretation ind icated cholecystectomy, but there is a contracted gallbladder with multiple sto guerita.) I recommended gallbladder ultrasound examination to Dr. Galarza.
[2022-04-02 22:39] VITALS: BP 184/95; PULSE 77; RESP 20; TEMP 36.4; O2SAT 95
[2022-04-02 23:21] LABS: Basophils Percent Auto 0.6 % (0.2-1.2); Eosinophils Absolute Auto 0.1 K/mm3 (0-0.3); Eosinophils Percent Auto 2.6 % (0-4.4); Hematocrit 45.9 % (42.0-52.0); Hemoglobin 16.1 g/dL (14.0-18.0); Immature Granulocyte Absolute 0.02 K/mm3 (0.00-0.031); Immature Granulocyte Percent A 0.4 % (0-0.5); Lymphocytes Absolute Auto 1.86 K/mm3 (0.9-3.2); Lymphocytes Percent Auto 34.5 % (18.3-44.2); Mean Corpuscular HGB Conc 35.1 g/dl (32-36); Mean Corpuscular Hemoglobin 30.7 pg (26-34); Mean Corpuscular Volume 87.4 fl (80-100); Mean Platelet Volume 10.5 fl (7.4-10.4); Monocytes Absolute Auto 0.5 K/mm3 (0.1-0.6); Monocytes Percent Auto 8.9 % (2.6-8.5); Neutrophils Absolute Auto 2.9 K/mm3 (1.3-6.7); Platelet Count Result 198 k/mm3 (150-375); Red Blood Count 5.25 M/mm3 (4.6-6.20); Red Cell Distribution Width 12.4 % (11.5-14.5); White Blood Count 5.4 K/mm3 (4.5-10.0)
[2022-04-02 23:40] LABS: Alanine Aminotransferase 41 U/L (6-50); Albumin Level 4.4 g/dL (3.5-5.1); Alkaline Phosphatase 62 U/L (38-126); Anion Gap 8 mmol/L (8-16); Aspartate Amino Transferase 31 U/L (17-59); Bilirubin,Total 0.5 mg/dL (0.2-1.3); Blood Urea Nitrogen 19 mg/dL (9-20); Calcium 8.8 mg/dL (8.4-10.2); Carbon Dioxide 29 mmol/L (22-30); Chloride 99 mmol/L (98-107); Estimated CRCL calculation 309 ml/min; Estimated Glomerular Filt Rate > 60; Glucose 357 mg/dL (65-110); Lipase 56 U/L (23-300); Potassium 3.9 mmol/L (3.4-5.0); Sodium 136 mmol/L (137-145)
[2022-04-03 01:43] LABS: Appearance Urine Clear (Clear); Bilirubin Urine Negative (Negative); Blood Urine Negative (Negative); Color Urine Yellow (Yellow); Glucose Urine UA 3+ mg/dL (Negative); Ketones Urine Negative (Negative); Leukocyte Esterase Ur Negative LEU/UL (Negative); Nitrate Urine Negative (Negative); Protein Urine Negative (Negative); Urobilinogen Urine 0.2 mg/dL (<2.0)
[2022-04-03 01:46] LABS: Mucus Urine Rare /lpf; RBC Urine 0-2 /hpf (0-2); Squamous Epithelial Cell Urine Rare /hpf (Few)
[2022-04-03 01:48] LABS: Add Urine Microscopic? YES
--- NOTE | 2022-04-03 03:02 | ED.GENADULT ---
HPI - General Adult General Chief complaint: Abdominal Pain Stated complaint: lower abdominal pain Time Seen by Provider: 04/03/22 01:49 History of Present Illness HPI narrative: Patient 41-year-old gentleman who presents to the emergency department chief complaint of abdominal pain. Patient reports that he ate dinner this evening and then started having pain throughout his abdomen the patient reports that it radiates from the epigastric region to the left lower quadrant. Patient reports he has prior history of diverticulitis and reports that his pain has gradually improved at this point. Related Data Home Medications Medication Instructions Recorded Confirmed atorvastatin 20 mg tablet 20 mg PO HS 01/15/22 01/15/22 furosemide 40 mg tablet 40 mg PO DAILY PRN Edema 01/15/22 01/15/22 losartan 100 mg tablet 100 mg PO DAILY 01/15/22 01/15/22 metformin 1,000 mg tablet 1,000 mg PO BIDWM 01/15/22 01/15/22 Allergies Allergy/AdvReac Type Severity Reaction Status Date / Time morphine AdvReac Nausea and Verified 04/02/22 22:43 Vomiting antipersperent deodorant AdvReac Blister Uncoded 01/15/22 05:59 Review of Systems Review of Systems: A 10 system review of systems was completed on the patient and is negative except for what is stated in the HPI. Nursing and ancillary documentation was reviewed. [facility] Past Medical History Medical History Diabetes Hypertension Social History Social History Social History: patient drinks alcohol occasionally, smoked quit smoking 10 years ago, denies illicit dr Smoking packs per day: 2 Smoking cigarettes per day: 40.0 Years smoked: 10 Smoking pack-years: 20.00 Smoking status: Former smoker Tobacco type: cigarettes Alcohol intake: current Substance use: never Spiritual care concerns: No Exam Narrative: GENERAL: Well-appearing, well-nourished, and in no acute distress. HEAD: Normocephalic, atraumatic. EYES: PERRLA and EOMI. ENT: Nares clear, no rhinorrhea or epistaxis. Mucous membranes moist. NECK: Supple. CHEST: Clear to auscultation. No respiratory distress. HEART: Regular rate and rhythm. No murmur heard. Normal peripheral pulses. ABDOMEN: Soft, minimal tenderness to palpation , nondistended, normal active bowel sounds. EXTREMITIES: Normal range of motion. No edema. SKIN: Warm, dry, no rash. NEURO: No focal deficits. Alert and oriented x3. PSYCH: Normal mood and affect. Course Course Emergency Course: CT scan of the abdomen pelvis showed no evidence of acute intra-abdominal pathology. The patient is feeling much better at this time patient be discharged home to follow-up with his primary care provider Vital Signs Vital signs: Vital Signs Temperature 36.4 C 04/02/22 22:39 Pulse Rate 77 04/02/22 22:39 Respiratory Rate 20 04/02/22 22:39 Blood Pressure 184/95 H 04/02/22 22:39 Pulse Oximetry 95 04/02/22 22:39 Oxygen Delivery Room Air 04/02/22 22:39 Temperature 36.4 C 04/02/22 22:39 Pulse Rate 77 04/02/22 22:39 Respiratory Rate 20 04/02/22 22:39 Blood Pressure 184/95 H 04/02/22 22:39 Pulse Oximetry 95 04/02/22 22:39 Oxygen Delivery Room Air 04/02/22 22:39 Medical Decision Making Vital Signs Vital Signs: Vital Signs Temperature 36.4 C 04/02/22 22:39 Pulse Rate 77 04/02/22 22:39 Respiratory Rate 20 04/02/22 22:39 Blood Pressure 184/95 H 04/02/22 22:39 Pulse Oximetry 95 04/02/22 22:39 Oxygen Delivery Room Air 04/02/22 22:39 Temperature 36.4 C 04/02/22 22:39 Pulse Rate 77 04/02/22 22:39 Respiratory Rate 20 04/02/22 22:39 Blood Pressure 184/95 H 04/02/22 22:39 Pulse Oximetry 95 04/02/22 22:39 Oxygen Delivery Room Air 04/02/22 22:39 Lab Data 04/02/22 22:48 04/02/22 22:49 Labs: Lab Results 04/02/22
[2022-04-03 04:50] VITALS: BP 120/65; PULSE 75; RESP 18; TEMP 36.9; O2SAT 97
== END 2022-04-03 04:52 | disposition home or self-care (01) ==
PROVIDERS: Emergency Provider Emergency Medicine
DX: K80.20 Calculus of gallbladder without cholecystitis without obstruction (principal); E11.9 Type 2 diabetes mellitus without complications; I10 Essential (primary) hypertension; Z79.84 Long term (current) use of oral hypoglycemic drugs; Z87.891 Personal history of nicotine dependence; K57.90 Diverticulosis of intestine, part unspecified, without perforation or abscess without bleeding; K76.0 Fatty (change of) liver, not elsewhere classified
CPT/HCPCS: 36415; 74177; 80053; 81001; 83690; 85025; 99284; Q9967

== ENCOUNTER 2023-08-10 00:16 | Emergency (ER) | payer OTHER, SELFPAY ==
[2023-08-10 00:16] VITALS: BP 141/80; PULSE 101; RESP 20; TEMP 36.7; O2SAT 96
--- NOTE | 2023-08-10 01:19 | ED.ANIMALBIT ---
HPI - Animal Bite General Chief Complaint: Animal Bite Stated Complaint: dog bite Time Seen by Provider: 08/10/23 00:16 Source: patient Mode of arrival: ambulatory Limitations: no limitations History of Present Illness HPI narrative: This is a 43-year-old male who presents to the ED with chief complaint of dog bite injuries that occurred just prior to arrival. Patient was helping his break up a dog fight between their oldest dog and the new puppy. Reports several small punctures to the right hand. Reports bleeding controlled. Reports tetanus up today. Denies any further sites of pain or injury. Related Data Home Medications Medication Instructions Recorded Confirmed atorvastatin 20 mg tablet 20 mg PO HS 01/15/22 01/15/22 furosemide 40 mg tablet 40 mg PO DAILY PRN Edema 01/15/22 01/15/22 losartan 100 mg tablet 100 mg PO DAILY 01/15/22 01/15/22 metformin 1,000 mg tablet 1,000 mg PO BIDWM 01/15/22 01/15/22 Allergies Allergy/AdvReac Type Severity Reaction Status Date / Time morphine AdvReac Nausea and Verified 08/10/23 00:21 Vomiting antipersperent deodorant AdvReac Blister Uncoded 01/15/22 05:59 Review of Systems Review of Systems: All systems as dictated in HPI [facility] Past Medical History Medical History Diabetes Hypertension Social History Social History Social History: patient drinks alcohol occasionally, smoked quit smoking 10 years ago, denies illicit dr Smoking packs per day: 2 Smoking cigarettes per day: 40.0 Years smoked: 10 Smoking pack-years: 20.00 Smoking status: Former smoker Tobacco type: cigarettes Alcohol intake: current Substance use: never Spiritual care concerns: No Exam Narrative: GENERAL: Well-appearing, well-nourished, and in no acute distress. HEAD: Normocephalic, atraumatic. EYES: PERRLA and EOMI. ENT: Nares clear, no rhinorrhea or epistaxis. Mucous membranes moist. Oropharynx without tonsillar hypertrophy exudate or other lesions. NECK: Supple. No adenopathy or masses. CHEST: No respiratory distress. Clear to auscultation. No wheezes rales or rhonchi HEART: Regular rate and rhythm. No murmur heard. Normal peripheral pulses. ABDOMEN: Soft, nontender, nondistended, normal active bowel sounds. MSK: Normal range of motion. No edema. No deformity, tenderness or bruising to the right forearm wrist. Full range of motion. SKIN: Scattered small puncture bite jared wounds to the dorsal and volar right wrist. No active bleeding. NEURO: Alert and oriented x3. No focal deficits. PSYCH: Normal mood and affect. Course Vital Signs Vital signs: Vital Signs Temperature 98.1 F 08/10/23 00:16 Pulse Rate 101 H 08/10/23 00:16 Respiratory Rate 20 08/10/23 00:16 Blood Pressure 141/80 H 08/10/23 00:16 Pulse Oximetry 96 08/10/23 00:16 Oxygen Delivery Room Air 08/10/23 00:16 Temperature 98.1 F 08/10/23 00:16 Pulse Rate 101 H 08/10/23 00:16 Respiratory Rate 20 08/10/23 00:16 Blood Pressure 141/80 H 08/10/23 00:16 Pulse Oximetry 96 08/10/23 00:16 Oxygen Delivery Room Air 08/10/23 00:16 MDM - Animal Bite MDM Narrative Medical decision making narrative: This is a 43-year-old male who presents to the ED with chief complaint of dog bite injury from his dog. Vitals are normal. Exam shows scattered puncture wounds to the right wrist. The wounds were well cleansed and irrigated here. Loosely closed with Steri-Strips. Patient will prescription for Augmentin. Tetanus status up today. Pt will be discharged in stable condition. Return precautions given and supportive measures discussed. Pt is understanding and agreeable with plan for discharge and follow-up with PCP. Discharge Plan Discharge Clinical Impression: Dog bite Patient Disposition: Home, Self-Care Condition: Stable I
== END 2023-08-10 01:35 | disposition home or self-care (01) ==
PROVIDERS: Emergency Provider Physician Assistant
DX: S61.451A Open bite of right hand, initial encounter (principal); E11.9 Type 2 diabetes mellitus without complications; I10 Essential (primary) hypertension; Z79.84 Long term (current) use of oral hypoglycemic drugs; Z87.891 Personal history of nicotine dependence; W54.0XXA Bitten by dog, initial encounter
CPT/HCPCS: 99283